=== PATIENT | female | born 1980 | race Caucasian/White ===

== ENCOUNTER 2021-11-05 12:51 | Emergency (ER) | payer SELFPAY ==
[~2021-11-05] VITALS: Ht 167.6 cm; Wt 82.0 kg
[2021-11-05 13:04] VITALS: BP 137/95
[2021-11-05 13:32] LABS: HEMATOCRIT 40.9 % (37.0-47.0); HEMOGLOBIN 13.1 g/dl (12.0-16.0); IMMATURE GRANULOCYTES 0.3 % (0.0-5.0); MEAN CELL VOLUME 89.7 fL CALC (80.0-100.0); MEAN CORPUSCULAR HGB 28.7 pG CALC (26.0-32.0); NEUT# 4.75 thou/uL (2.00-7.15); RED BLOOD COUNT 4.56 mill/uL (4.20-5.60); RED CELL DISTRI WIDTH 13.2 % (11.5-15.5)
[2021-11-05 13:34] VITALS: BP 117/84
[2021-11-05 13:48] LABS: ALBUMIN 4.4 g/dL (3.2-5.0); ALKALINE PHOSPHATASE 83 u/l (38-126); ANION GAP 13 (6-22 (CALC)); BILIRUBIN, TOTAL 0.6 mg/dL (0.0-1.4); BUN 16 mg/dL (7-17); BUN/CREATININE RATIO 23 (12-20 (CALC)); CARBON DIOXIDE 26 mmol/l (22-30); CHLORIDE 103 mmol/l (95-108); CREATININE 0.7 mg/dL (0.5-1.0); GFR FOR AFR.AMER. > 60 ML/MIN (>=60 (CALC)); GFR OTHER RACES > 60 ML/MIN (>=60 (CALC)); LIPASE 83 u/l (23-300); POTASSIUM 4.6 mmol/l (3.5-5.1); SGOT/AST 23 u/l (14-36); SODIUM 137 mmol/l (137-146); TOTAL PROTEIN 8.2 g/dL (6.3-8.2)
[2021-11-05 14:00] LABS: MYOGLOBIN 15 ng/mL (0 - 62)
[2021-11-05 14:01] VITALS: BP 127/78
[2021-11-05 14:30] VITALS: BP 123/79
[2021-11-05 15:33] VITALS: BP 111/76
[2021-11-05] MEDS ORDERED: ATIVAN0.5 MG PO (15:33)
[2021-11-05 16:00] VITALS: BP 123/81
[2021-11-05] MEDS ORDERED: MEDDOSEPAK PO (16:14)
[2021-11-05] MEDS ORDERED: TRAMADOL HCL50 MG PO (16:14)
[2021-11-05] MEDS ORDERED: PROTONIX40 M2 PO (16:14)
== END 2021-11-05 16:42 | disposition home or self-care (01) | DRG 392 ==
LOC: ED 12:51
PROVIDERS: Nurse Practitioner
DX: K29.70 Gastritis, unspecified, without bleeding (principal); M94.0 Chondrocostal junction syndrome [Tietze]; Z20.822 Contact with and (suspected) exposure to COVID-19
CPT/HCPCS: Q9967; S0164